=== PATIENT | female | born 1960 | race Caucasian/White ===

== ENCOUNTER 2018-09-17 09:42 | Emergency (ER) | payer MEDICAID, MEDICARE ==
[~2018-09-17] VITALS: Ht 167.6 cm; Wt 78.8 kg
[2018-09-17 09:45] VITALS: BP 111/72
--- NOTE | 2018-09-17 09:51 | NUR ---
FIRST CONTACT WITH PT. Pt presents to ED with c/o "right ear plugged up for one month". NADN. No obvious defecits observed. Pt denies dizziness. Call light within reach.
--- NOTE | 2018-09-17 10:29 | NUR ---
Patient given discharge instructions and they have confirmed that they understand the instructions. Patient ambulatory with steady gait. Pt left with prescription, discharge paperwork, and all personal belongings.
== END 2018-09-17 10:32 | disposition home or self-care (01) ==
LOC: ED 10:29
DX: H66.91 Otitis media, unspecified, right ear (principal); Z85.3 Personal history of malignant neoplasm of breast
CPT/HCPCS: 99283

== ENCOUNTER 2019-05-17 09:39 | Inpatient (IN) | payer MEDICAID, MEDICARE, OTHER ==
[~2019-05-17] VITALS: Ht 167.6 cm; Wt 86.2 kg
--- NOTE | 2019-05-17 09:58 | NUR ---
Pt to 30 from lobby
--- NOTE | 2019-05-17 10:11 | NUR ---
PT CO OF ABD PAIN AND [place] FOR "SEVERAL DAYS". PAIN IS THE WORST IN THE LOWER LEFT QUADRANT. DENIES VOMITTING, BACK PAIN. DENIES BLOODY STOOL. PT IN BED. CALL LIGHT WITHIN REACH.
[2019-05-17 10:35] LABS: BASOPHILS # (AUTO) 0.08 x10^3/uL (0-0.1); BASOPHILS % (AUTO) 1 % (0-1); EOSINOPHILS # (AUTO) 0.22 x10^3/uL (0-0.4); EOSINOPHILS % (AUTO) 2 % (1-7); LYMPHOCYTES # (AUTO) 2.63 x10^3/uL (1-3.4); LYMPHOCYTES % (AUTO) 24 % (22-44); MD NO; MEAN CORPUSCULAR HEMOGLOBIN 27.5 pg (27.0-34.8); MEAN CORPUSCULAR HGB CONC 32.9 g/dL (32.4-35.8); MEAN CORPUSCULAR VOLUME 83.6 fL (80-100); MEAN PLATELET VOLUME 8.5 fL (7.4-10.4); MONOCYTES # (AUTO) 0.54 x10^3/uL (0.2-0.8); MONOCYTES % (AUTO) 5 % (2-9); NEUTROPHILS # (AUTO) 7.55 x10^3/uL (1.8-6.8); NEUTROPHILS % (AUTO) 69 % (42-75); PLATELET COUNT 333 x10^3/uL (130-400); RED CELL DISTRIBUTION WIDTH 13.3 % (9.6-15.2)
[2019-05-17 10:36] LABS: CULTURE INDICATED? YES; MICROSCOPIC INDICATED
[2019-05-17 10:46] LABS: ALANINE AMINOTRANSFERASE 27 U/L (12-78); ALBUMIN 3.7 g/dL (3.4-5.0); ANION GAP 5 mmol/L (5-15); CALCIUM 9.5 mg/dL (8.5-10.1); CHLORIDE 106 mmol/L (98-107); CREATININE 0.98 mg/dL (0.55-1.02)
[2019-05-17 10:49] LABS: ALKALINE PHOSPHATASE 104 U/L (45-117); BILIRUBIN,TOTAL 0.4 mg/dL (0.2-1.0); TOTAL PROTEIN 8.2 g/dL (6.4-8.2)
[2019-05-17] MEDS ORDERED: SODIUM CHLORIDE FLUSH 10ML SYR IVF ONE ×2 (11:00→12:30)
--- NOTE | 2019-05-17 11:39 | NUR ---
PT IN WITH CT
--- NOTE | 2019-05-17 12:19 | NUR ---
PT IS CO OF PAIN. BUT IS REFUSING TO TAKE PAIN MEDICATION. SAYS SHE IS ALLERGIC TO ALL OPIODS AND DOESNT WANT TO TAKE ANY OTHER PAIN MEDS
[2019-05-17] MEDS ORDERED: METRONIDAZOLE PMX 500MG/100ML 100 ML ONE (12:29)
[2019-05-17] MEDS ORDERED: METRONIDAZOLE PMX 500MG/100ML 100 ML IV ONE (12:30)
[2019-05-17] MEDS ORDERED: CEFOTETAN PMX 2GM/50ML 50 ML IV ONE (12:30)
[2019-05-17] MEDS: CEFOTETAN PMX 2GM/50ML 50 ML IV SCH (13:30)
[2019-05-17] MEDS ORDERED: ONDANSETRON 2MG/ML, 2ML IVPush PRN (13:30)
[2019-05-17] MEDS: METRONIDAZOLE PMX 500MG/100ML 100 ML IVPB SCH ×2 (13:30→21:38)
--- NOTE | 2019-05-17 14:15 | NUR ---
PRECEPTOR NOTE: PT AMBULATED TO RESTROOM WITH NO ASSIST. SECOND ANTIBIOTIC STARTED. WAITING FOR BED ASSIGNMENT. VSS.
[2019-05-17] MEDS ORDERED: ACETAMINOPHEN 325 MG TABLET ONE (14:25)
[2019-05-17] MEDS: ACETAMINOPHEN 325 MG TABLET PO PRN ×2 (14:29→21:06)
--- NOTE | 2019-05-17 15:12 | NUR ---
PT IS RESTING IN BED. AWAITING ROOM TO BE ADMITTED.
[2019-05-17 16:56] VITALS: BP 125/85
[2019-05-17 17:21] VITALS: BP 125/85
[2019-05-17] MEDS: D5%-0.45NACL+KCL 20MEQ 1,000 ML IV SCH (18:30)
[2019-05-17 21:03] VITALS: BP 119/83
[2019-05-17 21:10] VITALS: BP 119/83
[2019-05-18] MEDS: CEFOTETAN PMX 2GM/50ML 50 ML IV SCH ×2 (01:20→13:16)
[2019-05-18 01:24] VITALS: BP 131/83
[2019-05-18] MEDS: D5%-0.45NACL+KCL 20MEQ 1,000 ML IV SCH ×3 (02:53→20:10)
[2019-05-18] MEDS: METRONIDAZOLE PMX 500MG/100ML 100 ML IVPB SCH ×3 (05:27→22:39)
[2019-05-18] MEDS ORDERED: OMNIPAQUE 350 MG/ML, 100ML BOTTLE ONE (07:10)
[2019-05-18 07:25] VITALS: BP 130/92
[2019-05-18 07:26] LABS: BASOPHILS # (AUTO) 0.04 x10^3/uL (0-0.1); BASOPHILS % (AUTO) 0 % (0-1); EOSINOPHILS # (AUTO) 0.29 x10^3/uL (0-0.4); EOSINOPHILS % (AUTO) 3 % (1-7); LYMPHOCYTES # (AUTO) 1.68 x10^3/uL (1-3.4); LYMPHOCYTES % (AUTO) 19 % (22-44); MD NO; MEAN CORPUSCULAR HEMOGLOBIN 27.7 pg (27.0-34.8); MEAN CORPUSCULAR HGB CONC 32.3 g/dL (32.4-35.8); MEAN CORPUSCULAR VOLUME 85.7 fL (80-100); MEAN PLATELET VOLUME 8.9 fL (7.4-10.4); MONOCYTES # (AUTO) 0.48 x10^3/uL (0.2-0.8); MONOCYTES % (AUTO) 5 % (2-9); NEUTROPHILS # (AUTO) 6.56 x10^3/uL (1.8-6.8); NEUTROPHILS % (AUTO) 73 % (42-75); PLATELET COUNT 252 x10^3/uL (130-400); RED BLOOD COUNT 5.13 x10^6/uL (3.82-5.3); RED CELL DISTRIBUTION WIDTH 13.3 % (9.6-15.2)
[2019-05-18] MEDS: ACETAMINOPHEN 325 MG TABLET PO PRN (08:48)
[2019-05-18] MEDS ORDERED: GOLYTELY 4,000ML ORAL.SOL PO ONE (12:00)
[2019-05-18] MEDS: NICOTINE 14MG/24 HR PATCH.TD24 TD SCH (12:12)
[2019-05-18 14:30] VITALS: BP 139/78
[2019-05-18] MEDS: KETOROLAC 30 MG/1 ML IVPush PRN (17:30)
[2019-05-18 20:45] VITALS: BP 119/74
[2019-05-19] MEDS: CEFOTETAN PMX 2GM/50ML 50 ML IV SCH ×2 (01:54→13:30)
[2019-05-19] MEDS: D5%-0.45NACL+KCL 20MEQ 1,000 ML IV SCH ×3 (01:57→19:14)
[2019-05-19] MEDS: ACETAMINOPHEN 325 MG TABLET PO PRN ×2 (04:55→14:30)
[2019-05-19 05:05] VITALS: BP 146/78
[2019-05-19] MEDS: METRONIDAZOLE PMX 500MG/100ML 100 ML IVPB SCH ×3 (06:09→22:15)
[2019-05-19] MEDS ORDERED: GOLYTELY 4,000ML ORAL.SOL PO ONE (09:00)
[2019-05-19 09:30] VITALS: BP 138/78
[2019-05-19] MEDS: NICOTINE 14MG/24 HR PATCH.TD24 TD SCH (11:54)
[2019-05-19 14:32] VITALS: BP 135/72
[2019-05-19 20:34] VITALS: BP 131/90
[2019-05-19] MEDS: KETOROLAC 30 MG/1 ML IVPush PRN (22:20)
[2019-05-20] MEDS: CEFOTETAN PMX 2GM/50ML 50 ML IV SCH (01:16)
[2019-05-20 01:31] VITALS: BP 127/85
[2019-05-20] MEDS: D5%-0.45NACL+KCL 20MEQ 1,000 ML IV SCH ×3 (04:20→21:53)
[2019-05-20] MEDS: METRONIDAZOLE PMX 500MG/100ML 100 ML IVPB SCH ×3 (06:30→21:53)
[2019-05-20] MEDS ORDERED: FENTANYL PF 250 MCG/5ML ONE (07:07)
[2019-05-20] MEDS ORDERED: MIDAZOLAM 1 MG/ML, 2ML ONE (07:07)
[2019-05-20] MEDS ORDERED: KETOROLAC 30 MG/1 ML IV PRN (07:30)
[2019-05-20] MEDS ORDERED: MEPERIDINE/PF 25MG/0.5ML IVPush PRN (07:30)
[2019-05-20] MEDS ORDERED: PROMETHAZINE 25 MG/ML, 1ML IV PRN (07:30)
[2019-05-20] MEDS ORDERED: LABETALOL 5MG/ML, 20ML IV PRN (07:30)
[2019-05-20] MEDS ORDERED: ALBUTEROL SULFATE 2.5 MG/3 ML NPPB PRN (07:30)
[2019-05-20] MEDS ORDERED: FENTANYL PF 100 MCG/2ML IV PRN (07:30)
[2019-05-20] MEDS ORDERED: OXYcodone 5 MG/5 ML ORAL.SOL UDC PO PRN (07:30)
[2019-05-20] MEDS ORDERED: METOCLOPRAMIDE 5 MG/ML, 2ML IV PRN (07:30)
[2019-05-20] MEDS ORDERED: ONDANSETRON 2MG/ML, 2ML IVPush PRN (07:30)
[2019-05-20] MEDS ORDERED: hydrALAzine 20 MG/ML, 1ML IV PRN (07:30)
[2019-05-20] MEDS ORDERED: DEXAMETHASONE 4 MG/ML, 1ML ONE (07:33)
[2019-05-20] MEDS ORDERED: SUCCINYLCHOLINE 20 MG/ML, 10ML ONE (07:33)
[2019-05-20] MEDS ORDERED: SUGAMMADEX 200 MG/2 ML IVPush ONE (07:33)
[2019-05-20] MEDS ORDERED: ROCURONIUM 10 MG/ML,10ML ONE (07:33)
[2019-05-20] MEDS ORDERED: PROPOFOL 10 MG/ML, 20ML ONE (07:33)
[2019-05-20] MEDS ORDERED: ONDANSETRON 2MG/ML, 2ML ONE ×2 (07:33→11:31)
[2019-05-20] MEDS ORDERED: FENTANYL PF 100 MCG/2ML ONE (10:19)
[2019-05-20] MEDS ORDERED: PROMETHAZINE 25 MG/ML, 1ML ONE (10:59)
[2019-05-20] MEDS: HYDROmorphone 1 MG/ML, 1ML INJ IV PRN ×2 (11:00→11:30)
[2019-05-20] MEDS ORDERED: HYDROmorphone PCA 30 MG/30 ML IV PRN ×2 (11:00)
[2019-05-20] MEDS ORDERED: LABETALOL 5MG/ML, 20ML IVPush PRN (11:00)
[2019-05-20] MEDS ORDERED: HYDROmorphone 1 MG/ML, 1ML INJ ONE (11:00)
[2019-05-20] MEDS ORDERED: ENALAPRILAT 1.25 MG/ML, 2ML IVPush PRN (11:00)
[2019-05-20] MEDS ORDERED: PROMETHAZINE 25 MG/ML, 1ML IM PRN (11:00)
[2019-05-20] MEDS ORDERED: DIPHENHYDRAMINE 50 MG/ML, 1ML IVPush PRN (11:00)
[2019-05-20 12:19] VITALS: BP 157/84
[2019-05-20] MEDS: NICOTINE 14MG/24 HR PATCH.TD24 TD SCH (12:58)
[2019-05-20] MEDS: CEFOTETAN PMX 1GM/50ML 50 ML IVPB SCH (12:58)
[2019-05-20 20:36] VITALS: BP 129/87
[2019-05-20] MEDS: KETOROLAC 30 MG/1 ML IVPush PRN (20:53)
[2019-05-20] MEDS: HYDROmorphone 1 MG/ML, 1ML INJ IVPush PRN (20:54)
[2019-05-21] MEDS: CEFOTETAN PMX 1GM/50ML 50 ML IVPB SCH ×2 (01:11→13:10)
[2019-05-21 01:18] VITALS: BP 102/68
[2019-05-21 04:58] VITALS: BP 114/78
[2019-05-21] MEDS: METRONIDAZOLE PMX 500MG/100ML 100 ML IVPB SCH ×3 (05:17→21:26)
[2019-05-21 05:35] LABS: BASOPHILS # (AUTO) 0.03 x10^3/uL (0-0.1); BASOPHILS % (AUTO) 0 % (0-1); EOSINOPHILS # (AUTO) 0.19 x10^3/uL (0-0.4); EOSINOPHILS % (AUTO) 2 % (1-7); LYMPHOCYTES # (AUTO) 1.49 x10^3/uL (1-3.4); LYMPHOCYTES % (AUTO) 16 % (22-44); MD NO; MEAN CORPUSCULAR HEMOGLOBIN 27.4 pg (27.0-34.8); MEAN CORPUSCULAR HGB CONC 32.3 g/dL (32.4-35.8); MEAN PLATELET VOLUME 8.9 fL (7.4-10.4); MONOCYTES # (AUTO) 0.72 x10^3/uL (0.2-0.8); MONOCYTES % (AUTO) 8 % (2-9); NEUTROPHILS # (AUTO) 6.71 x10^3/uL (1.8-6.8); NEUTROPHILS % (AUTO) 73 % (42-75); PLATELET COUNT 297 x10^3/uL (130-400); RED BLOOD COUNT 4.55 x10^6/uL (3.82-5.3); RED CELL DISTRIBUTION WIDTH 13.3 % (9.6-15.2)
[2019-05-21 05:40] LABS: ANION GAP 4 mmol/L (5-15); CHLORIDE 108 mmol/L (98-107)
[2019-05-21 05:41] LABS: CREATININE 0.94 mg/dL (0.55-1.02)
[2019-05-21] MEDS: D5%-0.45NACL+KCL 20MEQ 1,000 ML IV SCH ×3 (06:33→20:11)
[2019-05-21 07:48] VITALS: BP 113/74
[2019-05-21] MEDS: HYDROmorphone 1 MG/ML, 1ML INJ IVPush PRN ×3 (09:01→20:19)
[2019-05-21] MEDS: NICOTINE 14MG/24 HR PATCH.TD24 TD SCH (11:22)
[2019-05-21 13:07] VITALS: BP 117/78
[2019-05-21 19:22] VITALS: BP 115/72
[2019-05-21] MEDS: ONDANSETRON 2MG/ML, 2ML IVPush PRN (19:22)
[2019-05-21] MEDS: KETOROLAC 30 MG/1 ML IVPush PRN (21:26)
[2019-05-22] MEDS: CEFOTETAN PMX 1GM/50ML 50 ML IVPB SCH ×2 (01:01→13:08)
[2019-05-22 02:25] VITALS: BP 113/74
[2019-05-22] MEDS: KETOROLAC 30 MG/1 ML IVPush PRN ×2 (04:58→11:46)
[2019-05-22] MEDS: D5%-0.45NACL+KCL 20MEQ 1,000 ML IV SCH ×3 (04:58→22:00)
[2019-05-22] MEDS: METRONIDAZOLE PMX 500MG/100ML 100 ML IVPB SCH ×3 (04:58→21:33)
[2019-05-22 05:46] LABS: BASOPHILS # (AUTO) 0.02 x10^3/uL (0-0.1); BASOPHILS % (AUTO) 0 % (0-1); EOSINOPHILS # (AUTO) 0.46 x10^3/uL (0-0.4); EOSINOPHILS % (AUTO) 4 % (1-7); LYMPHOCYTES # (AUTO) 1.48 x10^3/uL (1-3.4); LYMPHOCYTES % (AUTO) 14 % (22-44); MD NO; MEAN CORPUSCULAR HEMOGLOBIN 27.3 pg (27.0-34.8); MEAN CORPUSCULAR HGB CONC 32.3 g/dL (32.4-35.8); MEAN CORPUSCULAR VOLUME 84.5 fL (80-100); MEAN PLATELET VOLUME 8.9 fL (7.4-10.4); MONOCYTES # (AUTO) 0.86 x10^3/uL (0.2-0.8); MONOCYTES % (AUTO) 8 % (2-9); NEUTROPHILS # (AUTO) 7.47 x10^3/uL (1.8-6.8); NEUTROPHILS % (AUTO) 73 % (42-75); PLATELET COUNT 271 x10^3/uL (130-400); RED BLOOD COUNT 4.23 x10^6/uL (3.82-5.3); RED CELL DISTRIBUTION WIDTH 13.4 % (9.6-15.2)
[2019-05-22 06:55] VITALS: BP 117/80
[2019-05-22] MEDS: NICOTINE 14MG/24 HR PATCH.TD24 TD SCH (13:11)
[2019-05-22 13:23] VITALS: BP 123/79
[2019-05-22] MEDS: HYDROmorphone 1 MG/ML, 1ML INJ IVPush PRN (18:46)
[2019-05-22 20:03] VITALS: BP 103/68
[2019-05-22] MEDS: ACETAMINOPHEN 325 MG TABLET PO PRN (21:37)
[2019-05-23] MEDS: ACETAMINOPHEN 325 MG TABLET PO PRN (01:26)
[2019-05-23] MEDS: CEFOTETAN PMX 1GM/50ML 50 ML IVPB SCH ×2 (01:26→13:13)
[2019-05-23] MEDS: HYDROmorphone 1 MG/ML, 1ML INJ IVPush PRN ×2 (01:32→13:09)
[2019-05-23 01:47] VITALS: BP 105/64
[2019-05-23] MEDS: METRONIDAZOLE PMX 500MG/100ML 100 ML IVPB SCH ×3 (05:20→21:14)
[2019-05-23 05:22] LABS: BASOPHILS # (AUTO) 0.05 x10^3/uL (0-0.1); BASOPHILS % (AUTO) 1 % (0-1); EOSINOPHILS # (AUTO) 0.63 x10^3/uL (0-0.4); EOSINOPHILS % (AUTO) 7 % (1-7); LYMPHOCYTES # (AUTO) 1.47 x10^3/uL (1-3.4); LYMPHOCYTES % (AUTO) 16 % (22-44); MD NO; MEAN CORPUSCULAR HEMOGLOBIN 27.4 pg (27.0-34.8); MEAN CORPUSCULAR HGB CONC 32.3 g/dL (32.4-35.8); MEAN CORPUSCULAR VOLUME 85.1 fL (80-100); MEAN PLATELET VOLUME 8.8 fL (7.4-10.4); MONOCYTES # (AUTO) 0.52 x10^3/uL (0.2-0.8); MONOCYTES % (AUTO) 6 % (2-9); NEUTROPHILS # (AUTO) 6.59 x10^3/uL (1.8-6.8); NEUTROPHILS % (AUTO) 71 % (42-75); PLATELET COUNT 273 x10^3/uL (130-400); RED BLOOD COUNT 4.19 x10^6/uL (3.82-5.3); RED CELL DISTRIBUTION WIDTH 13.3 % (9.6-15.2)
[2019-05-23] MEDS: D5%-0.45NACL+KCL 20MEQ 1,000 ML IV SCH ×3 (07:01→23:23)
[2019-05-23 07:42] VITALS: BP 111/79
[2019-05-23] MEDS: NICOTINE 14MG/24 HR PATCH.TD24 TD SCH (13:13)
[2019-05-23] MEDS: ONDANSETRON 2MG/ML, 2ML IVPush PRN (13:13)
[2019-05-23 13:35] VITALS: BP 117/75
[2019-05-23 18:48] VITALS: BP 117/75
[2019-05-24] MEDS: CEFOTETAN PMX 1GM/50ML 50 ML IVPB SCH ×2 (01:00→13:12)
[2019-05-24 01:56] VITALS: BP 128/83
[2019-05-24] MEDS: HYDROmorphone 1 MG/ML, 1ML INJ IVPush PRN ×4 (02:00→15:52)
[2019-05-24] MEDS: ONDANSETRON 2MG/ML, 2ML IVPush PRN ×2 (02:00→12:02)
[2019-05-24] MEDS: METRONIDAZOLE PMX 500MG/100ML 100 ML IVPB SCH ×3 (04:56→21:35)
[2019-05-24 07:18] VITALS: BP 129/79
[2019-05-24] MEDS: D5%-0.45NACL+KCL 20MEQ 1,000 ML IV SCH (09:49)
[2019-05-24 13:22] VITALS: BP 112/75
[2019-05-24] MEDS: NICOTINE 14MG/24 HR PATCH.TD24 TD SCH (14:23)
[2019-05-24] MEDS ORDERED: D5%-0.45NACL+KCL 20MEQ 1,000 ML IV SCH (15:00)
[2019-05-24 19:11] VITALS: BP 116/75
[2019-05-24] MEDS: ACETAMINOPHEN 325 MG TABLET PO PRN (21:38)
[2019-05-25] MEDS: CEFOTETAN PMX 1GM/50ML 50 ML IVPB SCH ×2 (01:05→13:24)
[2019-05-25 01:27] VITALS: BP 121/79
[2019-05-25] MEDS: HYDROmorphone 1 MG/ML, 1ML INJ IVPush PRN ×6 (01:31→23:34)
[2019-05-25] MEDS: METRONIDAZOLE PMX 500MG/100ML 100 ML IVPB SCH ×3 (05:41→21:48)
[2019-05-25 06:12] LABS: BASOPHILS # (AUTO) 0.03 x10^3/uL (0-0.1); BASOPHILS % (AUTO) 0 % (0-1); EOSINOPHILS # (AUTO) 0.65 x10^3/uL (0-0.4); EOSINOPHILS % (AUTO) 9 % (1-7); LYMPHOCYTES # (AUTO) 1.64 x10^3/uL (1-3.4); LYMPHOCYTES % (AUTO) 23 % (22-44); MD NO; MEAN CORPUSCULAR HEMOGLOBIN 27.3 pg (27.0-34.8); MEAN CORPUSCULAR HGB CONC 32.2 g/dL (32.4-35.8); MEAN CORPUSCULAR VOLUME 84.9 fL (80-100); MEAN PLATELET VOLUME 8.3 fL (7.4-10.4); MONOCYTES # (AUTO) 0.52 x10^3/uL (0.2-0.8); MONOCYTES % (AUTO) 7 % (2-9); NEUTROPHILS # (AUTO) 4.47 x10^3/uL (1.8-6.8); NEUTROPHILS % (AUTO) 61 % (42-75); PLATELET COUNT 315 x10^3/uL (130-400); RED BLOOD COUNT 4.02 x10^6/uL (3.82-5.3); RED CELL DISTRIBUTION WIDTH 13.5 % (9.6-15.2)
[2019-05-25 06:23] LABS: CHLORIDE 105 mmol/L (98-107)
[2019-05-25 06:32] LABS: ALANINE AMINOTRANSFERASE 17 U/L (12-78); ALBUMIN 2.3 g/dL (3.4-5.0); ALKALINE PHOSPHATASE 54 U/L (45-117); ANION GAP 5 mmol/L (5-15); BILIRUBIN,TOTAL 0.2 mg/dL (0.2-1.0); CALCIUM 8.2 mg/dL (8.5-10.1); CREATININE 0.81 mg/dL (0.55-1.02); TOTAL PROTEIN 5.7 g/dL (6.4-8.2)
[2019-05-25 07:56] VITALS: BP 126/82
[2019-05-25] MEDS: NICOTINE 14MG/24 HR PATCH.TD24 TD SCH (13:24)
[2019-05-25 13:46] VITALS: BP 116/71
[2019-05-25] MEDS: ENOXAPARIN 30 MG/0.3 ML SQ SCH (15:20)
[2019-05-25] MEDS: D5%-0.45NACL+KCL 20MEQ 1,000 ML IV SCH (17:57)
[2019-05-25 18:50] VITALS: BP 112/68
[2019-05-26 00:48] VITALS: BP 128/79
[2019-05-26] MEDS: CEFOTETAN PMX 1GM/50ML 50 ML IVPB SCH ×2 (01:03→12:33)
[2019-05-26] MEDS: ENOXAPARIN 30 MG/0.3 ML SQ SCH ×2 (01:03→14:45)
[2019-05-26] MEDS: HYDROmorphone 1 MG/ML, 1ML INJ IVPush PRN ×3 (02:20→12:27)
[2019-05-26] MEDS: METRONIDAZOLE PMX 500MG/100ML 100 ML IVPB SCH (05:27)
[2019-05-26 07:40] VITALS: BP 116/78
[2019-05-26] MEDS: D5%-0.45NACL+KCL 20MEQ 1,000 ML IV SCH ×2 (07:53→21:20)
[2019-05-26] MEDS: NICOTINE 14MG/24 HR PATCH.TD24 TD SCH (12:30)
[2019-05-26 13:54] VITALS: BP 125/78
[2019-05-26 19:32] VITALS: BP 113/67
[2019-05-26] MEDS: ACETAMINOPHEN 325 MG TABLET PO PRN (21:01)
[2019-05-27] MEDS: ENOXAPARIN 30 MG/0.3 ML SQ SCH (01:57)
[2019-05-27 02:00] VITALS: BP 127/77
[2019-05-27] MEDS: ACETAMINOPHEN 325 MG TABLET PO PRN ×2 (03:12→11:10)
[2019-05-27 07:19] VITALS: BP 122/82
[2019-05-27] MEDS ORDERED: HYDROmorphone 2MG TABLET PO PRN (09:30)
[2019-05-27] MEDS ORDERED: ACET650S21 PO (11:17)
[2019-05-27] MEDS ORDERED: HYDR2TAB29 PO (11:17)
== END 2019-05-27 11:41 | disposition home or self-care (01) | DRG 330 ==
LOC: ED 13:22 → EDIP 13:27 → ED 13:30 → 3WST 16:23 → 4NE 05-20 12:11 → DCLOUNGE 05-27 11:26
PROVIDERS: ADMIT Surgery; ATTEND Surgery
PROC: 02H633Z Insertion of Infusion Device into Right Atrium, Percutaneous Approach (ICD-10-PCS; 2019-05-20)
PROC: B548ZZA Ultrasonography of Superior Vena Cava, Guidance (ICD-10-PCS; 2019-05-20)
PROC: 0DTG0ZZ Resection of Left Large Intestine, Open Approach (ICD-10-PCS; principal; 2019-05-20 07:30)
DX: K57.20 Diverticulitis of large intestine with perforation and abscess without bleeding (principal); K56.7 Ileus, unspecified; F17.210 Nicotine dependence, cigarettes, uncomplicated; Z85.3 Personal history of malignant neoplasm of breast; Z90.710 Acquired absence of both cervix and uterus; Z88.0 Allergy status to penicillin; Z88.5 Allergy status to narcotic agent
CPT/HCPCS: 36415; 71045; 74021; 74177; 80048; 80053; 81001; 83605; 83690; 85025; 87040; 87086; 88307; G0378; J1100; J1170; J1650; J1885; J2250; J2405; J2550; J2704; J3010; Q9967; J0330; J3480; J3490

== ENCOUNTER 2019-05-28 13:24 | Emergency (ER) | payer MEDICARE ==
[~2019-05-28] VITALS: Ht 167.6 cm; Wt 86.4 kg
[~2019-05-28 13:24] MED LIST: ACET650S21 PO; HYDR2TAB29 PO
--- NOTE | 2019-05-28 13:37 | NUR ---
Pt presents to ED by EMS from home with c/o 03/09 generalized abdominal pain s/p discharge home from hospital yesterday for abdominal sugery, colonectomy for divertiluitis. Pt states difficulty with pharmacy filling Dilaudid prescription until tomorrow. Pt received medication prior to arrival to ED. 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 Bedrails up x 2 and call light within reach. EDMD at bedside. NADN. No other needs expressed.
[2019-05-28] MEDS ORDERED: HYDROmorphone 1 MG/ML, 1ML INJ ONE (13:51)
--- NOTE | 2019-05-28 13:52 | NUR ---
Provided report to KALPANA Sage. All questions answered. KALPANA Sage to assume care of pt at this time.
--- NOTE | 2019-05-28 13:58 | NUR ---
REPORT RECEIVED FROM KALPANA LAM. PLAN OF CARE DISCUSSED. LAB STATES "PATIENT IS REFUSING LAB DRAWS". NOTIFIED.
[2019-05-28] MEDS ORDERED: HYDROmorphone 1 MG/ML, 1ML INJ IV ONE (14:00)
--- NOTE | 2019-05-28 14:04 | NUR ---
PATIENT MEDICATED PER EMAR, TOLERATED WELL. [facility].
--- NOTE | 2019-05-28 14:19 | NUR ---
PATIENT STILL REFUSING LAB DRAWS, STATES "I DON'T WANT TO BE POKED AGAIN".
--- NOTE | 2019-05-28 14:27 | NUR ---
PATIENT STATES DAUGHTER WILL BE COMING TO PICK HER UP, PATIENT WILL GO HOME WITH DAUGHTER TO HAVE HELP WITH CARE AT HOME.
--- NOTE | 2019-05-28 15:30 | NUR ---
PATIENT GIVEN DISCHARGE INSTRUCTIONS AND INFORMATION, PIV TAKEN OUT, AND INSTRUCTED TO CHANGE IN TO [facility].
[2019-05-28 15:55] VITALS: BP 125/83
--- NOTE | 2019-05-28 15:55 | NUR ---
WENT BACK TO ROOM TO WHEEL PATIENT TO DISCHARGE THEN LOBBY, PATIENT NOT IN ROOM. PATIENT ALSO NOT IN LOBBY.
== END 2019-05-28 15:57 | disposition home or self-care (01) ==
LOC: ED 15:10
DX: R10.84 Generalized abdominal pain (principal)
CPT/HCPCS: 96374; 99283; J1170